=== PATIENT | male | born 1970 | race Caucasian/White ===

== ENCOUNTER 2017-01-06 07:19 | Inpatient (IN) | payer OTHER ==
--- NOTE | ~2017-01-06 | DS ---
Discharge Summary [facility] [address] [place]. [address] NAME: ASIF LO : 74 STATUS : DIS IN PAT#: [id number] AGE: 46 ADM/REG DATE : 01/06/17 MR#: [id number] REPORT SERV DATE: 01/23/17 DICTATED BY: NISHA GLASER DATE: 01/22/17 REPORT STATUS : Draft TRANSCRIBED BY: CAROL DATE: 01/22/17 Data Collection from hospitalization DISCHARGE DIAGNOSES: 1. ST-elevation myocardial infarction-acute. 2. Coronary artery disease, status post drug-eluting stent to the right coronary artery. 3. Hypertension. 4. Type 2 diabetes mellitus. 5. Chronic obstructive pulmonary disease. 6. Tobacco use. CONSULTATIONS: Marck Lagunas NP PROCEDURES: 1. Cardiac catheterization and percutaneous coronary intervention 01/06/2017. 2. Staged percutaneous coronary intervention 01/10/2017. DISCHARGE MEDICATIONS: Ventolin two puffs via inhaler every four hours as needed; Fioricet one tablet daily as needed, aspirin 81 mg daily; Lipitor 40 mg at bedtime; Coreg 3.125 mg twice a day; Plavix 75 mg daily; Nexium 40 mg daily; fenofibrate 160 mg daily; NovoLog injection insulin subcutaneously with meals as instructed; Claritin 10 mg daily; Cozaar 25 mg daily; Robaxin 750 mg twice a day; Basaglar 35 units subcutaneously at bedtime. CONDITION AT DISCHARGE: Stable. DISPOSITION: The patient was discharged home with diet and activities as instructed. He will follow up with Dr. Nisha Glaser 01/23/[address] Davey Rivera 01/15/2017. HOSPITAL COURSE: This is a 46-year-old man who presented with an acute inferior wall myocardial infarction. The patient has no known cardiovascular disease. He does have a history of hypertension and ongoing tobacco use, COPD, and diabetes. He developed chest discomfort around 6 a.m. on the morning of this admission, that was 10 over 10 in severity. filing or registry clerk were called and EKG demonstrated inferior ST-segment elevation. His blood pressure was approximately 70. He was transferred to [facility], and it was felt that he would need to be taken directly to the cardiac corn lab technician for cardiac catheterization and percutaneous coronary intervention. He was admitted to the hospital at this time for further evaluation and treatment. Upon admission, the patient was taken to the cardiac corn lab technician where he underwent the above- mentioned procedure. He tolerated this well. There were no complications. Following this, he was seen by Dr. Marck Lagunas. The patient was currently recovering in the CCU. He reported that he had had some indigestion pain that had progressed to more severe chest pain, and he actually fell twice at home with his finding him. He was rushed to [facility] where he underwent cardiac catheterization and percutaneous coronary intervention. He had gone through a traumatic event recently with the loss of his brother that was completely unexpected and he had been dealing with that over the past few days. He said that his blood sugars have been quite elevated even into the 300 to 400 range for some time, maybe even for several months. He said he uses [facility] as his Discharge Summary [address] [address] NAME: ASIF LO : 74 STATUS : DIS IN PAT#: [id number] AGE: 46 ADM/REG DATE : 01/06/17 MR#: [id number] REPORT SERV DATE: 01/23/17 DICTATED BY: NISHA GLASER DATE: 01/22/17 REPORT STATUS : Draft TRANSCRIBED BY: CAROL DATE: 01/22/17 primary care and some medication adjustments had been made there. However, he was unable to say exactly what those changes were or what medications he was taking at home. White blood cell count was 11.1. Creatinine level was 1.66. Levemir and NovoLog were going to be used for blood sugar management. It was felt that he had some grief and questionable depression following the recent of his brother. Urinalysis and urine drug screen were going to be checked. A nicotine patch would be utilized if this was okay with Cardiology. The patient was currently on dual anti-platelet therapy with aspirin and Plavix. His cardiac catheterization did show diffuse multivessel disease with an ejection fraction of 40%. There was severe hypokinesis along with the finding of 100% occlusion of the RCA. The following day, he had no chest pain or shortness of breath. He was in a normal sinus rhythm. His lungs were clear. The patient strongly requested to avoid coronary artery bypass grafting. His current Levemir and Aspart were continued. The patient underwent diabetes education. He had no shortness of breath or chest pain. Levemir was increased. Hemoglobin A1c was found to be 9.9. He had no pedal edema. On 01/09/2017, he said he felt well. He had no chest pain or shortness of breath. Blood pressure control was okay. Plans were being made for the patient to undergo staged percutaneous coronary interventions. Blood pressure remained stable. The cardiac catheterization was not performed on the due to his brother's . On the , the patient was in a normal sinus rhythm. He had no complaints of chest pain or shortness of breath. He was taken to the cardiac corn lab technician where he underwent the above-mentioned procedure by Dr. Laverne Dumont M.D. He tolerated this well, and there were no complications. Discharge planning was performed on 01/11/2017. He said he felt great. Discharge instructions were given. Due to his improved and stable condition, he was discharged home with the above-stated instructions. Information collected by: Ana Kingston I submit the above information as my discharge summary. TG/CAROL Nisha Glaser M.D. / [id number] CC: Josiane Vega MD
--- NOTE | ~2017-01-06 | PRECARD ---
H&P [facility] [address] [place]. [address] NAME: DAVON LO : 74 STATUS : ADM IN [facility]#: [id number] AGE: 46 ADM/REG DATE : 01/06/17 MR#: [id number] REPORT SERV DATE: 01/06/17 DICTATED BY: NISHA GLASER DATE: 01/06/17 REPORT STATUS : Draft TRANSCRIBED BY: CAROL DATE: 01/06/17 DATE OF ADMISSION: 01/06/2017 HISTORY: Mr. Davon Lo is a 46-year-old gentleman, admitted with acute inferior wall myocardial infarction. Mr. Lo has no known cardiovascular disease. He does have history of hypertension, ongoing tobacco use, COPD, and diabetes. He developed chest discomfort at about 0600 hours this morning, 10/10 severity. The boat joiner were called, EKG demonstrated inferior ST-segment elevation. His blood pressure was approximately 70. He was transferred to [facility] directly to the Practice Director. PAST MEDICAL HISTORY: Hypertension, diabetes, COPD, ongoing tobacco use. MEDICATIONS: Uncertain, they do include insulin. SOCIAL HISTORY: Ongoing tobacco, denies alcohol, he works with security. FAMILY HISTORY: Positive coronary artery disease. REVIEW OF SYSTEMS: A complete review of systems obtained, pertinent negative and remarkable, except as noted above and below, all systems addressed. PHYSICAL EXAMINATION: VITAL SIGNS: Blood pressure 70/50, heart rate about 40. GENERAL: Comfortable, in no acute distress. HEENT: No xanthelasma; lips without cyanosis. LUNGS: Clear to auscultation, no wheezes, rales or rhonchi; good breath sounds. COR: No JVD or hepatojugular reflux, no murmurs, rubs or gallops, impulse mid clavicular line without carotid or abdominal bruits; normal S1 and S2. ABDOMEN: Bowel sounds positive, normal activity, without tenderness, masses or hepatosplenomegaly. EXTREMITIES: No edema, cyanosis. SKIN: Normal turgor. MS: Normal muscle strength, without kyphosis/scoliosis. NEURO/PSYCH: Alert and oriented times 4, no apparent anxiety or depression. DATA: EKG, sinus bradycardia, inferior ST elevation. ASSESSMENT: Mr. Lo is a 46-year-old gentleman with acute inferior wall myocardial infarction, cardiogenic shock. I discussed the risks and benefits of catheterization, angioplasty, stent placement, pacemaker eventually in. He understands and requests to proceed. H&P [address] [place] [address] NAME: DAVON LO : 74 STATUS : ADM IN PAT#: [id number] AGE: 46 ADM/REG DATE : 01/06/17 MR#: [id number] REPORT SERV DATE: 01/06/17 DICTATED BY: NISHA GLASER DATE: 01/06/17 REPORT STATUS : Draft TRANSCRIBED BY: CAROL DATE: 01/06/17 HARISH/CAROL Nisha Glaser M.D. / [id number] CC: Nisha Glaser M.D.
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
[2017-01-06 07:39] LABS: CREATININE 1.1 MG/DL (0.70-1.30)
[2017-01-06 07:47] LABS: BASOPHILS 0.5 %; BASOPHILS ABSOLUTE 0.06 10/3/uL (0.0-0.16); EOSINOPHILS ABSOLUTE 0.22 10/3/uL (0.0-0.53); HEMOGLOBIN 11.9 g/dL (13.6-17.8); IMMATURE GRANULOCYTES 0.5 %; IMMATURE GRANULOCYTES ABSOLUTE 0.06 10/3/uL (0.0-0.11); LYMPHOCYTES 41.6 %; LYMPHOCYTES ABSOLUTE 4.63 10/3/uL (0.67-4.30); MEAN CORPUS HGB CONC 33.1 g/dL (32.0-36.0); MEAN CORPUSCULAR HEMOGLOB 25.5 pg (26.0-34.0); MEAN CORPUSCULAR VOLUME 77.1 fL (80-100); MONOCYTES 8.3 %; MONOCYTES ABSOLUTE 0.92 10/3/uL (0.21-1.20); NEUTROPHILS 47.1 %; NEUTROPHILS ABSOLUTE 5.23 10/3/uL (2.02-8.40); PLATELET COUNT 239 10/3/uL (150-400); RED CELL COUNT 4.67 10/6/uL (4.7-6.1); WHITE BLOOD CELLS 11.1 10/3/uL (4.5-10.5)
[2017-01-06 07:51] LABS: MANUAL DIFF NO %
[2017-01-06 07:52] LABS: INTERNATIONAL NORMAL RATI 1.3 UNITS (-); PARTIAL THROMBO TIME 23.5 SEC (22.5-37.2)
[2017-01-06 08:03] LABS: BUN (BLOOD UREA NITROGEN) 16 MG/DL (6-23); CALCIUM, SERUM 7.5 MG/DL (8.5-10.4); CHEST PAIN PROFILE TAT 0 Hrs 21 Mins; CHLORIDE, SERUM 104 MMOL/L (96-112); CO2 (CARBON DIOXIDE) 22 MMOL/L (24-34); CREATININE 1.26 MG/DL (0.70-1.30); GFR AFRICAN AMERICAN 80 ML/MIN (>=60); GFR NON AFRICAN AMERICAN 69 ML/MIN (>=60); GLUCOSE, SERUM 252 MG/DL (60-99); POTASSIUM, SERUM 2.9 MMOL/L (3.5-5.3); SODIUM, SERUM 137 MMOL/L (135-148); TROPONIN I 0.03 NG/ML (<0.05)
[2017-01-06 10:30] LABS: CPK 92 U/L (0-200)
[2017-01-06] MEDS ORDERED: NOVOLOG SC (12:26)
[2017-01-06] MEDS ORDERED: NEXIUM40 PO (12:26)
[2017-01-06] MEDS ORDERED: LOFIB160 PO (12:26)
[2017-01-06] MEDS ORDERED: HYDROCHLOROT25 MG PO (12:26)
[2017-01-06] MEDS ORDERED: PRAVACHOL40 MG PO (12:27)
[2017-01-06] MEDS ORDERED: AMIT25 PO (12:27)
[2017-01-06] MEDS ORDERED: BASAGLAR SC (12:27)
[2017-01-06] MEDS ORDERED: CLARIT10 PO (12:28)
[2017-01-06] MEDS ORDERED: VENTOLIN HFA INH (12:28)
[2017-01-06] MEDS ORDERED: COZAAR100 MG PO (12:28)
[2017-01-06] MEDS ORDERED: IBU800 PO (12:29)
[2017-01-06] MEDS ORDERED: METHOC750B PO (12:29)
[2017-01-06] MEDS ORDERED: FIORICET 50-301 EACH PO (12:29)
[2017-01-06 16:47] LABS: ASCORBIC ACID (UR NOT ORDER) NEG (NEG); BILIRUBIN, URINE NEGATIVE (NEG); KETONE, URINE NEGATIVE (NEG); LEUKOCYTE ESTERASE(NOT OR NEG (NEG); WBC (NOT ORDERED) (RFLEX) 1 (0-5)
[2017-01-06 18:50] LABS: AMPHETAMINES (NOT ORD) NEG (NEG); BARBITURATES (NOT ORDERED NEG (NEG); BENZODIAZEPINES (NOT ORD) POS (NEG); CANNABINOIDS (THC) NEG (NEG); COCAINE (NOT ORDERED) NEG (NEG); OPIATES NEG (NEG); PHENCYCLIDINE(PCP) NEG (NEG); TRICYCLICS POS (NEG)
[2017-01-06 20:20] LABS: BUN (BLOOD UREA NITROGEN) 17 MG/DL (6-23); CHLORIDE, SERUM 103 MMOL/L (96-112); CK-MB 82.7 NG/ML; CO2 (CARBON DIOXIDE) 23 MMOL/L (24-34); CPK 1168 U/L (0-200); CREATININE 0.95 MG/DL (0.70-1.30); GFR AFRICAN AMERICAN 112 ML/MIN (>=60); GFR NON AFRICAN AMERICAN 97 ML/MIN (>=60); SODIUM, SERUM 135 MMOL/L (135-148)
[2017-01-06 20:22] LABS: CALCIUM, SERUM 9.2 MG/DL (8.5-10.4); CKMB INDEX (NOT ORD) 7.1; GLUCOSE, SERUM 165 MG/DL (60-99); POTASSIUM, SERUM 4.4 MMOL/L (3.5-5.3)
[2017-01-07 03:08] LABS: BASOPHILS 0.6 %; BASOPHILS ABSOLUTE 0.06 10/3/uL (0.0-0.16); EOSINOPHILS 1.2 %; EOSINOPHILS ABSOLUTE 0.13 10/3/uL (0.0-0.53); HEMOGLOBIN 13.5 g/dL (13.6-17.8); IMMATURE GRANULOCYTES 0.4 %; IMMATURE GRANULOCYTES ABSOLUTE 0.04 10/3/uL (0.0-0.11); LYMPHOCYTES 28.7 %; LYMPHOCYTES ABSOLUTE 3.01 10/3/uL (0.67-4.30); MEAN CORPUS HGB CONC 33.8 g/dL (32.0-36.0); MEAN CORPUSCULAR HEMOGLOB 26.2 pg (26.0-34.0); MEAN CORPUSCULAR VOLUME 77.5 fL (80-100); MEAN PLATELET VOLUME 8.9 fL (9.2-13.0); MONOCYTES 8.2 %; MONOCYTES ABSOLUTE 0.86 10/3/uL (0.21-1.20); NEUTROPHILS 60.9 %; PLATELET COUNT 247 10/3/uL (150-400); RBC DISTRIBUTION WIDTH 14.9 % (12.0-16.0); RED CELL COUNT 5.15 10/6/uL (4.7-6.1); WHITE BLOOD CELLS 10.5 10/3/uL (4.5-10.5)
[2017-01-07 03:10] LABS: HEMATOCRIT 39.9 % (40.0-51.0); MANUAL DIFF NO %
[2017-01-07 03:35] LABS: BUN (BLOOD UREA NITROGEN) 15 MG/DL (6-23); CALCIUM, SERUM 8.9 MG/DL (8.5-10.4); CHLORIDE, SERUM 102 MMOL/L (96-112); CHOL/HDL RATIO(NOT ORDER) 6.6 (0-5); CHOLESTEROL 206 MG/DL (< 200); CK-MB 43.2 NG/ML; CKMB INDEX (NOT ORD) 5.9; CO2 (CARBON DIOXIDE) 27 MMOL/L (24-34); CPK 738 U/L (0-200); CREATININE 0.95 MG/DL (0.70-1.30); GFR AFRICAN AMERICAN 112 ML/MIN (>=60); GFR NON AFRICAN AMERICAN 97 ML/MIN (>=60); GLUCOSE, SERUM 158 MG/DL (60-99); HDL CHOLESTEROL 31 MG/DL (> 39); NON-HDL CHOLESTEROL 175 MG/DL (< 160); SODIUM, SERUM 137 MMOL/L (135-148); TRIGLYCERIDE 400 MG/DL (< 150)
[2017-01-07 10:43] LABS: CK-MB 23.9 NG/ML; CKMB INDEX (NOT ORD) 4.8
[2017-01-08 05:54] LABS: BUN (BLOOD UREA NITROGEN) 16 MG/DL (6-23); CALCIUM, SERUM 9.3 MG/DL (8.5-10.4); CHLORIDE, SERUM 105 MMOL/L (96-112); CO2 (CARBON DIOXIDE) 25 MMOL/L (24-34); CREATININE 0.86 MG/DL (0.70-1.30); GFR AFRICAN AMERICAN 122 ML/MIN (>=60); GFR NON AFRICAN AMERICAN 105 ML/MIN (>=60); GLUCOSE, SERUM 142 MG/DL (60-99); POTASSIUM, SERUM 3.7 MMOL/L (3.5-5.3); SODIUM, SERUM 138 MMOL/L (135-148)
[2017-01-09 05:48] LABS: BUN (BLOOD UREA NITROGEN) 15 MG/DL (6-23); CALCIUM, SERUM 9.6 MG/DL (8.5-10.4); CHLORIDE, SERUM 104 MMOL/L (96-112); CO2 (CARBON DIOXIDE) 26 MMOL/L (24-34); CREATININE 0.86 MG/DL (0.70-1.30); GFR AFRICAN AMERICAN 122 ML/MIN (>=60); GFR NON AFRICAN AMERICAN 105 ML/MIN (>=60); GLUCOSE, SERUM 143 MG/DL (60-99); SODIUM, SERUM 137 MMOL/L (135-148)
[2017-01-10 05:04] LABS: INTERNATIONAL NORMAL RATI 1.1 UNITS (-); PROTIME (NOT ORD) 14.4 SEC (12.0-14.5)
[2017-01-10 05:05] LABS: BASOPHILS 0.6 %; BASOPHILS ABSOLUTE 0.06 10/3/uL (0.0-0.16); EOSINOPHILS 2.2 %; EOSINOPHILS ABSOLUTE 0.22 10/3/uL (0.0-0.53); HEMATOCRIT 40.6 % (40.0-51.0); HEMOGLOBIN 13.6 g/dL (13.6-17.8); IMMATURE GRANULOCYTES 0.5 %; IMMATURE GRANULOCYTES ABSOLUTE 0.05 10/3/uL (0.0-0.11); LYMPHOCYTES 32.7 %; LYMPHOCYTES ABSOLUTE 3.28 10/3/uL (0.67-4.30); MEAN CORPUS HGB CONC 33.5 g/dL (32.0-36.0); MEAN CORPUSCULAR HEMOGLOB 25.7 pg (26.0-34.0); MEAN CORPUSCULAR VOLUME 76.7 fL (80-100); MEAN PLATELET VOLUME 9.5 fL (9.2-13.0); MONOCYTES 9.9 %; MONOCYTES ABSOLUTE 0.99 10/3/uL (0.21-1.20); NEUTROPHILS 54.1 %; NEUTROPHILS ABSOLUTE 5.44 10/3/uL (2.02-8.40); PLATELET COUNT 235 10/3/uL (150-400); RBC DISTRIBUTION WIDTH 14.9 % (12.0-16.0); RED CELL COUNT 5.29 10/6/uL (4.7-6.1)
[2017-01-10 05:10] LABS: MANUAL DIFF NO %
[2017-01-10 05:25] LABS: BUN (BLOOD UREA NITROGEN) 14 MG/DL (6-23); CHLORIDE, SERUM 105 MMOL/L (96-112); CHOL/HDL RATIO(NOT ORDER) 5.3 (0-5); CHOLESTEROL 174 MG/DL (< 200); CO2 (CARBON DIOXIDE) 23 MMOL/L (24-34); GFR AFRICAN AMERICAN 106 ML/MIN (>=60); GFR NON AFRICAN AMERICAN 91 ML/MIN (>=60); GLUCOSE, SERUM 171 MG/DL (60-99); HDL CHOLESTEROL 33 MG/DL (> 39); LDL CHOLESTEROL 70 MG/DL (< 130); NON-HDL CHOLESTEROL 141 MG/DL (< 160); POTASSIUM, SERUM 3.8 MMOL/L (3.5-5.3); SODIUM, SERUM 138 MMOL/L (135-148); TRIGLYCERIDE 355 MG/DL (< 150)
[2017-01-10 11:18] LABS: CPK 68 U/L (0-200)
[2017-01-11 05:19] LABS: HEMATOCRIT 41.1 % (40.0-51.0); HEMOGLOBIN 13.7 g/dL (13.6-17.8)
[2017-01-11 05:36] LABS: BUN (BLOOD UREA NITROGEN) 15 MG/DL (6-23); CALCIUM, SERUM 8.9 MG/DL (8.5-10.4); CHLORIDE, SERUM 108 MMOL/L (96-112); CK-MB 7.3 NG/ML; CO2 (CARBON DIOXIDE) 25 MMOL/L (24-34); CREATININE 0.95 MG/DL (0.70-1.30); GFR AFRICAN AMERICAN 112 ML/MIN (>=60); GFR NON AFRICAN AMERICAN 97 ML/MIN (>=60); GLUCOSE, SERUM 146 MG/DL (60-99); POTASSIUM, SERUM 4.1 MMOL/L (3.5-5.3); SODIUM, SERUM 141 MMOL/L (135-148)
[2017-01-11 05:37] LABS: CKMB INDEX (NOT ORD) 4.5; CPK 163 U/L (0-200)
[2017-01-11] MEDS ORDERED: ASAB PO (09:48)
[2017-01-11] MEDS ORDERED: LIPITOR40 PO (09:50)
[2017-01-11] MEDS ORDERED: PLAVIX PO (09:51)
[2017-01-11] MEDS ORDERED: COREG3 PO (09:51)
[2017-01-11] MEDS ORDERED: COZ25 PO (09:52)
[2017-01-11] MEDS ORDERED: NOVOPEN (10:21)
[2017-01-11] MEDS ORDERED: LEVEMFLXPN SC (10:21)
== END 2017-01-11 10:45 | disposition home or self-care (01) | DRG 246 ==
LOC: CCU 07:19 → 5NO 01-07 14:21 → SSU2 01-10 09:56
PROVIDERS: Internal Medicine Cardiovascular Disease
PROC: 027135Z Dilation of Coronary Artery, Two Arteries with Two Drug-eluting Intraluminal Devices, Percutaneous Approach (ICD-10-PCS; principal; 2017-01-06)
PROC: 4A023N7 Measurement of Cardiac Sampling and Pressure, Left Heart, Percutaneous Approach (ICD-10-PCS; principal; 2017-01-06)
PROC: 02703DZ Dilation of Coronary Artery, One Artery with Intraluminal Device, Percutaneous Approach (ICD-10-PCS; 2017-01-06)
PROC: B2111ZZ Fluoroscopy of Multiple Coronary Arteries using Low Osmolar Contrast (ICD-10-PCS; 2017-01-06)
PROC: B2151ZZ Fluoroscopy of Left Heart using Low Osmolar Contrast (ICD-10-PCS; 2017-01-06)
PROC: 5A1223Z Performance of Cardiac Pacing, Continuous (ICD-10-PCS; 2017-01-06)
DX: I21.19 ST elevation (STEMI) myocardial infarction involving other coronary artery of inferior wall (principal); R57.0 Cardiogenic shock; I10 Essential (primary) hypertension; J44.9 Chronic obstructive pulmonary disease, unspecified; F17.210 Nicotine dependence, cigarettes, uncomplicated; I25.10 Atherosclerotic heart disease of native coronary artery without angina pectoris; E78.5 Hyperlipidemia, unspecified; E11.65 Type 2 diabetes mellitus with hyperglycemia; E87.6 Hypokalemia; E78.00 Pure hypercholesterolemia, unspecified; Z98.890 Other specified postprocedural states; Z79.4 Long term (current) use of insulin; Z88.5 Allergy status to narcotic agent; Z82.49 Family history of ischemic heart disease and other diseases of the circulatory system
CPT/HCPCS: 71010; 80048; 80061; 80305; 81001; 82550; 82553; 82962; 83036; 83735; 84132; 84295; 84484; 85014; 85018; 85025; 85347; 85610; 85730; 87641; 92941; 93005; 93458; 99152; 99153; A9270-GY; C1725; C1760; C1769; C1874; C1876; C1887; C1894; C9600; J0583; J1200; J2250; J3010; Q9967